=== PATIENT | male | born 1985 | race Caucasian/White ===

== ENCOUNTER 2024-01-09 02:00 | Emergency (ER) | payer SELFPAY ==
[~2024-01-09] VITALS: Ht 182.9 cm; Wt 82.0 kg
[2024-01-09 02:02] VITALS: O2SAT 99
[2024-01-09] MEDS: HALOPERIDOL LACTATE 5MG/ML VIAL IM ONE (02:13)
[2024-01-09] MEDS: LORAZEPAM 2MG/ML INJ IM ONE (02:13)
[2024-01-09 03:41] LABS: EOSINOPHILS % 0.8 % (0.0-5.0); HEMATOCRIT. 35.8 % (42.0-52.0); MEAN CORPUSCULAR HEMOGLOBIN 29.9 pg (28.0-32.0); MEAN CORPUSCULAR HGB CONC 33.4 g/dL (31.0-37.0); MEAN CORPUSCULAR VOLUME 89.6 fL (80.0-94.0); MEAN PLATELET VOLUME 7.7 fl (7.4-10.4); MONOCYTES % 8.4 % (2.0-8.0); NEUTROPHILS % 63.8 % (40.0-76.0); PLATELET 219 x1000/uL (130-400); RED CELL DISTRIBUTION WIDTH 15.8 % (11.6-14.6); WHITE BLOOD COUNT 3.9 x1000/uL (4.5-11.0)
[2024-01-09 03:47] LABS: CHLORIDE 107 mEq/L (98-107); POTASSIUM 3.7 mEq/L (3.5-5.1); SODIUM 144 mEq/L (136-145)
[2024-01-09 03:48] LABS: CALCIUM 9.5 mg/dL (8.7-10.4); CARBON DIOXIDE 24 mEq/L (21-32)
[2024-01-09 03:51] LABS: CLARITY URINE CLEAR (CLEAR); COLOR URINE YELLOW (YELLOW); GLUCOSE URINE NEGATIVE (NEGATIVE); KETONES URINE NEGATIVE (NEGATIVE); LEUKOCYTE ESTERASE URINE NEGATIVE (NEGATIVE); NITRITE URINE NEGATIVE (NEGATIVE); OCCULT BLOOD URINE 1+ (NEGATIVE); PH URINE 6.5 (4.5-8.0); PROTEIN URINE NEGATIVE (NEGATIVE); SPECIFIC GRAVITY URINE 1.006 (1.005-1.030); UROBILINOGEN URINE 0.2 E.U./dL (0.2-1.0)
[2024-01-09 03:53] LABS: CREATININE 0.9 mg/dL (0.6-1.3); ETHANOL BLOOD 252 mg/dL (<10); GLUCOSE 117 mg/dL (70-105); UREA NITROGEN BLOOD 11 mg/dL (9-23)
[2024-01-09 03:55] LABS: *AMPHETAMINES SCREEN URINE NEGATIVE (NEGATIVE); *BARBITURATES SCREEN URINE NEGATIVE (NEGATIVE); *BENZODIAZEPINES SCREEN URINE NEGATIVE (NEGATIVE); *COCAINE SCREEN URINE NEGATIVE (NEGATIVE); ACETAMINOPHEN < 2 ug/mL (10-30); CANNABINOID URINE SCREEN NEGATIVE (NEGATIVE); ECSTASY MDMA SCREEN URINE NEGATIVE (NEGATIVE); METHADONE URINE SCREEN NEGATIVE (NEGATIVE); OPIATES URINE SCREEN NEGATIVE (NEGATIVE); PHENCYCLIDINE URINE SCREEN NEGATIVE (NEGATIVE)
[2024-01-09 05:21] LABS: RBC URINE 0-2 /hpf (0-2); WBC URINE 0-2 /hpf (0-2)
[2024-01-09 05:23] LABS: SQUAMOUS EPITHELIAL CELL URINE RARE /lpf (RARE/1+)
[2024-01-09 05:29] LABS: BACTERIA URINE NONE SEEN
[2024-01-09] MEDS: ACETAMINOPHEN 325MG TABLET PO ONE (08:51)
[2024-01-09] MEDS: QUETIAPINE FUMARATE 50MG TABLET PO SCH (15:39)
[2024-01-11] MEDS: IBUPROFEN 600MG TABLET PO ONE (15:29)
[2024-01-11 18:36] VITALS: TEMP 98
[2024-01-12] VITALS: BP 123/82
[2024-01-12 06:39] VITALS: PULSE 63; RESP 16
== END 2024-01-12 14:12 | disposition home or self-care (01) ==
LOC: ER 02:00
DX: F10.129 Alcohol abuse with intoxication, unspecified (principal); Z20.822 Contact with and (suspected) exposure to COVID-19; Y90.8 Blood alcohol level of 240 mg/100 ml or more
CPT/HCPCS: 80305; 80048; 81003; 80307; 80329; 80320; 85025; 36415; 71045; 96372; 99285; 87426; 73130; Z7610 ×3; J1630; J2060; G0480